=== PATIENT | female | born 2000 ===

== ENCOUNTER 2024-07-10 21:22 | Emergency (ER) | payer SELFPAY ==
[2024-07-10 21:31] VITALS: BP 140/79; PULSE 132; RESP 14; TEMP 37.2; O2SAT 100
--- NOTE | 2024-07-10 21:35 | ECG_ITS ---
Test Date: 2024-07-10 21:44:36 Measurements Intervals [place] Rate: 124 P: 71 WI: 144 QRS: 66 QRSD: 80 T: 37 QT: 283 QTc: 407 Interpretive Statements SINUS TACHYCARDIA INCOMPLETE RIGHT BUNDLE BRANCH BLOCK No previous ECG available for comparison Electronically Signed On 07-11-2024 09:40:34 CDT by Meredith Meza M.D.
[2024-07-11 00:22] VITALS: BP 99/52; PULSE 97; RESP 16; TEMP 37.1; O2SAT 99
--- NOTE | 2024-07-11 00:27 | PC.NURSE ---
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
== END 2024-07-11 00:50 | disposition left against medical advice (07) ==
LOC: ANHED 07-11 00:37
PROVIDERS: Emergency Provider Emergency Medicine
DX: R07.9 Chest pain, unspecified (principal)
CPT/HCPCS: 93005; 99199